=== PATIENT | male | born 1995 | race Two or more races ===

== ENCOUNTER 2021-04-24 02:43 | Emergency (ER) | payer SELFPAY ==
[2021-04-24 02:44] VITALS: BP 154/107; PULSE 72; RESP 18; TEMP 35.6; O2SAT 97; BMI 34.3
[2021-04-24] MEDS: Penicillin Vk 250 MG Tablet 500 MG PO (03:05)
--- NOTE | 2021-04-24 03:09 | ED.VIS.DENTA ---
HPI History of Present Illness Chief Complaint: Dental Informant: patient Narrative Narrative: Increasing left upper dental pain 3 hours ago. This is waking him from sleep. Sensitivities to water and air. Tylenol and ibuprofen taken. History of dental caries with fillings. He does have a dentist. No allergies. No fevers. Prior similar symptoms: Yes PFSH PFSH Medical History no medical history Home Medications prednisone 60 mg PO DAILY #24 tablet 08/10/16 [Rx Last Taken Unknown] penicillin V potassium 500 mg PO 4X/DAY #40 tab 04/24/21 [Rx Last Taken Unknown] Allergy/AdvReac Type Severity Reaction Status Date / Time No Known Allergies Allergy Verified 08/10/16 05:58 Family History no significant family his Surgical History no surgical history Social History Smoking Status: Current every day smoker tobacco type: cigarettes ROS ROS ED Constitutional Constitutional ED: Denies chills, fever(s) or sweats Eyes Eyes: Denies change in vision ENT ENT ED: Reports other Details: Dental pain ; Denies dysphagia or sore throat Cardiovascular Cardiovascular: Denies chest pain, leg edema, palpitations or racing heartbeat Respiratory/Chest Respiratory/Chest: Denies cough, dyspnea or dyspnea on exertion Gastrointestinal Gastrointestinal: Denies abdominal pain, diarrhea, nausea or vomiting Genitourinary Genitourinary ED: Denies dysuria, hematuria or urinary frequency Musculoskeletal Musculoskeletal: Denies back pain, extremity pain or neck pain Integumentary Denies rash or wounds Neurologic Neurologic: Denies headache(s), paresthesias or weakness EXAM Physical Exam Const Vital Signs: 04/24/21 02:44 Temperature 96.1 F L Temperature Source Temporal Pulse Rate 72 Respiratory Rate 18 Blood Pressure 154/107 H Blood Pressure Mean 122 Pulse Ox 97 Oxygen Delivery Method Room Air Positive well nourished and well developed General Appearance ED: well developed and NAD HEENT Reports moist mucous membranes HEENT Narrative: Multiple dental fillings to the left upper premolars and molars. There is no focal abscess. Airway patent. Tender to percussion tooth #14. normocephalic and atraumatic Eyes PERRL, EOMs intact bilaterally and conjunctivae normal General Eye ED: Yes normal appearance of both eyes Neck no lymphadenopathy and supple General: Negative for tenderness Chest Wall Chest: Negative for tenderness Resp normal respiratory effort and normal air movement Effort and Inspection: symmetric chest movement; Negative for respiratory distress Cardio regular rate, regular rhythm and no murmurs Peripheral Pulses: pulses 2+ throughout GI normal to inspection, nondistended, normoactive bowel sounds and non-tender Palpation: Negative for guarding or rebound tenderness present Back/Spine no CVA tenderness and no thoracic nor lumbar tenderness Extremity normal to inspection General Extremety ED: Negative for edema or tenderness General Extremity: Negative for edema Neuro oriented x3 and no sensory deficits noted Sensorium / Orientation: awake and alert Skin no rashes or lesions noted and no wounds MDM MDM MDM Narrative Medical decision making narrative: Patient nontoxic to tenderness to percussion. With sensitivities discussed likely underlying caries causing nerve irritation. He started on penicillin. He will continue Tylenol and Motrin as needed. Offered dental block however declines at this time. Follow-up with his dentist also given a dental list for follow-up and definitive treatment. All questions were answered. Patient is being discharged under pandemic conditions under declared global, national and state disaster activation, with limited medical resources. Patient and community understands this. Results discussed in layman's terms to the patient satisfaction. All questions answered in layman's terms. Patient understands importance of follow-up care as directed. Patient has been instructed to return to the ED immediately if new symptoms, problems, or questions occur. We mutually agree with the plan of disposition. The patient understand that they may call or return with any questions or concerns at any time. Discharge Plan Triage Chief Complaint: Dental ED Provider: Scott Anna Dx/Rx/DC Orders Clinical Impression: Dentalgia Instructions: ED Dental Pain Prescriptions: New penicillin V potassium 500 MG tablet 500 mg PO 4X/DAY Qty: 40 RF: 0 No Action prednisone 20 MG tablet 60 mg PO DAILY Qty: 24 RF: 0 Primary Care Provider: Vega Hilton Referrals: Vega Hilton, [Primary Care Provider] - Activity Restrictions/Additional Instructions: Follow-up with your dentist for evaluation and definitive treatment. Antibiotics sent to your pharmacy at [facility]. Continue Tylenol and ibuprofen as needed. Disposition Disposition: Home, Self Care Discharge Date/Time: 04/24/21 03:23
--- NOTE | 2021-04-24 13:01 | ED.RN ---
PER PT [facility] CLOSED. UNABLE TO HEAD OF BIOLOGY PRESCRIPTIONS. THIS NURSE ATTEMPTED TO CONTACT [facility]. NO ANSWER. DR RIVERA SENDING [facility] PER PT REQUEST
== END 2021-04-24 03:23 | disposition home or self-care (01) ==
LOC: ED 03:20
PROVIDERS: Emergency Provider Emergency Medicine; PCP Family Medicine
DX: K08.89 Other specified disorders of teeth and supporting structures (principal); F17.210 Nicotine dependence, cigarettes, uncomplicated; Z79.52 Long term (current) use of systemic steroids
CPT/HCPCS: 99282